=== PATIENT | female | born 1950 | race Asian ===

== ENCOUNTER 2017-03-23 08:35 | Inpatient (IN) | payer OTHER, MEDICAID ==
[~2017-03-23] VITALS: Ht 157.5 cm; Wt 73.9 kg
[2017-03-23 10:06] LABS: Urine Bilirubin Negative (Negative); Urine Blood Negative /uL (Negative); Urine Glucose Normal (Normal); Urine Ketone Negative (Negative); Urine Nitrite Negative (Negative); Urine RBC <1 /hpf (0 - 4); Urine Squamous Epithelial Cell FEW /hpf (<5); Urine Urobilinogen Normal (Negative)
[2017-03-23 10:07] LABS: Urine Color Straw (Yellow)
[2017-03-23 10:08] LABS: Basophils # (auto) 0 uL; Basophils % (auto) 0.3 % (0.0-2.0); CONDITION Y; Eosinophils # (auto) 0.1 uL; Hematocrit 45.7 % (36.0-46.0); Hemoglobin 15.5 g/dL (12.2-16.2); Lymphocytes # (auto) 3.3 uL; Lymphocytes % (auto) 28.9 % (10.0-50.0); Mean Corpuscular Hemoglobin 29.4 pg (28.0-32.0); Mean Corpuscular Hgb Conc. 33.9 g/dL (32.0-36.0); Mean Corpuscular Volume 86.8 fL (80.0-100.0); Mean Platelet Volume 8.6 fL (7.4-10.4); Monocytes # (auto) 0.7 uL; Monocytes % (auto) 6.3 % (0.0-12.0); Neutrophils # (auto) 7.2 uL; Neutrophils % (auto) 63.5 % (37.0-80.0); Platelet Count (auto) 306 10^3/uL (140-450); Red Cell Distribution Width 13.5 % (11.6-16.0); White Blood Cell 11.4 10^3/uL (4.4-10.8)
[2017-03-23 10:28] LABS: Chloride 102 mmol/L (98-107); Potassium 3.7 mmol/L (3.5-5.1); Sodium 138 mmol/L (136-145)
[2017-03-23 10:32] LABS: Albumin 4.1 g/dL (3.4-5.0); Amylase 69 U/L (25-115); Anion Gap 8 (5-15); BUN/Creatinine Ratio 13.5; Blood Urea Nitrogen 12 mg/dL (7-18); Calcium 9.4 mg/dL (8.5-10.1); Carbon Dioxide 28 mmol/L (21-32); GFR African American 82 mL/min; GFR Non-African American 67 mL/min; Glucose 92 mg/dL (74-106); Magnesium 2.4 mg/dL (1.6-2.6)
[2017-03-23 10:39] LABS: Alkaline Phosphatase 155 U/L (45-117); Aspartate Aminotransferase 31 U/L (15-37); Bilirubin, Total 0.5 mg/dL (0.2-1.0); Total Protein 8.7 g/dL (6.4-8.2)
[2017-03-23] MEDS ORDERED: SODIUM CHLORIDE 0.9% 1,000 ML IVB ONE (18:51)
[2017-03-23 20:05] LABS: INR 0.95 (0.9-1.15); Partial Thromboplastin Time 28.6 sec (22.64-33.71); Prothrombin Time 10.3 sec (9.37-12.3)
[2017-03-23] MEDS ORDERED: ONDANSETRON HCL 4 MG/2 ML VIAL IV ONE (21:45)
[2017-03-23] MEDS ORDERED: cefTRIAXone 1GM/50ML D5W 50 ML IV ONE (21:45)
[2017-03-23] MEDS ORDERED: MORPHINE SULF INJ 2 MG/ML SYRINGE 1ML IV ONE (21:45)
[2017-03-23] MEDS ORDERED: cloNIDine HCL 0.1 MG TAB PO PRN (22:00)
[2017-03-23] MEDS ORDERED: DEXTROSE (50%) 50ML SYRG IV PRN ×2 (22:00)
[2017-03-23 23:00] VITALS: BP 90/67
[2017-03-23 23:30] VITALS: BP 90/67
[2017-03-23] MEDS: SODIUM CHLORIDE 0.9% 1,000 ML IV SCH (23:35)
[2017-03-23] MEDS: FAMOTIDINE (10MG/ML) 2ML VL IV SCH (23:35)
[2017-03-23] MEDS: ATORVASTATIN 20 MG TAB PO SCH (23:35)
[2017-03-23] MEDS: ACCU-CHEK COMFORT CURVE STRIP VI SCH (23:41)
[2017-03-23] MEDS: InsuLIN REG 1unit/0.01ml Soln (100units/ml) SC SCH (23:41)
[2017-03-24 04:47] VITALS: BP 138/76
[2017-03-24] MEDS: InsuLIN REG 1unit/0.01ml Soln (100units/ml) SC SCH ×3 (06:00→18:00)
[2017-03-24] MEDS: SODIUM CHLORIDE 0.9% 1,000 ML IV SCH ×3 (06:00→20:17)
[2017-03-24] MEDS: ACCU-CHEK COMFORT CURVE STRIP VI SCH ×3 (06:31→18:00)
[2017-03-24 07:52] LABS: Basophils # (auto) 0 uL; Basophils % (auto) 0.4 % (0.0-2.0); CONDITION Y; Eosinophils # (auto) 0.1 uL; Eosinophils % (auto) 1.2 % (0.0-7.0); Hemoglobin 13.6 g/dL (12.2-16.2); Lymphocytes # (auto) 2.7 uL; Lymphocytes % (auto) 33.7 % (10.0-50.0); Mean Corpuscular Hemoglobin 29.2 pg (28.0-32.0); Mean Corpuscular Hgb Conc. 33.3 g/dL (32.0-36.0); Mean Corpuscular Volume 87.8 fL (80.0-100.0); Mean Platelet Volume 8.6 fL (7.4-10.4); Monocytes # (auto) 0.7 uL; Monocytes % (auto) 8.4 % (0.0-12.0); Neutrophils # (auto) 4.6 uL; Neutrophils % (auto) 56.3 % (37.0-80.0); Platelet Count (auto) 268 10^3/uL (140-450); Red Cell Distribution Width 13.4 % (11.6-16.0); White Blood Cell 8.1 10^3/uL (4.4-10.8)
[2017-03-24 07:56] LABS: BUN/Creatinine Ratio 7.7; Bilirubin, Total 0.7 mg/dL (0.2-1.0); Calcium 8.3 mg/dL (8.5-10.1); Potassium 3.8 mmol/L (3.5-5.1)
[2017-03-24 08:00] VITALS: BP 143/79
[2017-03-24] MEDS ORDERED: ceFAZolin 1GM/50ML D5W 50 ML IV ONE (08:29)
[2017-03-24] MEDS ORDERED: MEPERIDINE HCL (50 MG/ML) 1 ML VIAL ONE (08:46)
[2017-03-24] MEDS ORDERED: fentaNYL CITRATE 100 MCG/2 ML VL ONE (08:46)
[2017-03-24] MEDS ORDERED: MIDAZOLAM HCL 1MG/1ML-2 ML VIAL ONE (08:46)
[2017-03-24] MEDS ORDERED: DEXAMETHASONE SOD PHOS 10MG/1ML VIAL INJ ONE (08:47)
[2017-03-24 09:00] VITALS: BP 141/94
[2017-03-24] MEDS ORDERED: hydrALAZINE HCL 20 MG/ML VL IV PRN (09:00)
[2017-03-24] MEDS ORDERED: KETOROLAC TROMETH 30 MG/ML 1ML VIAL IV ONE (09:00)
[2017-03-24] MEDS ORDERED: ONDANSETRON HCL 4 MG/2 ML VIAL IV ONE (09:00)
[2017-03-24] MEDS ORDERED: MORPHINE SULF INJ 2 MG/ML SYRINGE 1ML IV PRN (09:00)
[2017-03-24] MEDS ORDERED: ePHEDrine SULFATE 50 MG/ML AMP IV PRN (09:00)
[2017-03-24] MEDS ORDERED: LABETALOL HCL 5 MG/ML 4ML SYRINGE IV PRN (09:00)
[2017-03-24] MEDS ORDERED: HYDROmorphone HCL 2 MG/ML VL IV PRN (09:00)
[2017-03-24] MEDS ORDERED: MIDAZOLAM HCL 1MG/1ML-2 ML VIAL IV PRN (09:00)
[2017-03-24] MEDS: cefTRIAXone 1GM/50ML D5W 50 ML IV SCH (09:00)
[2017-03-24] MEDS ORDERED: PROPOFOL 10 MG/ML 20 ML IV ONE (09:20)
[2017-03-24] MEDS ORDERED: ROCURONIUM 10MG/ML 10ML VIAL IV ONE (09:31)
[2017-03-24] MEDS ORDERED: NEOSTIGMINE 1 MG/ML INJ (10mg/10ML VIAL) ONE (09:43)
[2017-03-24] MEDS ORDERED: GLYCOPYRROLATE 0.2 MG/ML 1ML VIAL ONE (09:45)
[2017-03-24] MEDS: FAMOTIDINE (10MG/ML) 2ML VL IV SCH ×2 (10:00→21:45)
[2017-03-24 13:00] VITALS: BP 94/56
[2017-03-24 17:19] VITALS: BP 120/73
[2017-03-24] MEDS: MORPHINE SULF INJ 2 MG/ML SYRINGE 1ML IV PRN (20:17)
[2017-03-24] MEDS: ATORVASTATIN 20 MG TAB PO SCH (21:45)
[2017-03-24 22:00] VITALS: BP 117/69
[2017-03-25] MEDS: ACCU-CHEK COMFORT CURVE STRIP VI SCH ×5 (00:15→23:55)
[2017-03-25] MEDS ORDERED: METF-370 PO (01:37)
[2017-03-25] MEDS ORDERED: ASPI81TA27 PO (01:37)
[2017-03-25] MEDS ORDERED: HYDR12.56 PO (01:37)
[2017-03-25] MEDS ORDERED: LOSA50TA6 PO (01:37)
[2017-03-25 05:00] VITALS: BP 135/79
[2017-03-25] MEDS: InsuLIN REG 1unit/0.01ml Soln (100units/ml) SC SCH ×5 (05:54→23:55)
[2017-03-25] MEDS: SODIUM CHLORIDE 0.9% 1,000 ML IV SCH ×3 (05:54→22:13)
[2017-03-25 08:00] VITALS: BP 138/82
[2017-03-25] MEDS: cefTRIAXone 1GM/50ML D5W 50 ML IV SCH (09:27)
[2017-03-25] MEDS: FAMOTIDINE (10MG/ML) 2ML VL IV SCH ×2 (09:30→22:13)
[2017-03-25 12:00] VITALS: BP 126/71
[2017-03-25] MEDS: ONDANSETRON HCL 4 MG/2 ML VIAL IV PRN ×2 (13:19→19:57)
[2017-03-25 16:00] VITALS: BP 152/81
[2017-03-25] MEDS: MORPHINE SULF INJ 2 MG/ML SYRINGE 1ML IV PRN (19:58)
[2017-03-25 21:52] VITALS: BP 151/90
[2017-03-25] MEDS: ATORVASTATIN 20 MG TAB PO SCH (22:12)
[2017-03-26 04:48] VITALS: BP 160/88
[2017-03-26] MEDS: InsuLIN REG 1unit/0.01ml Soln (100units/ml) SC SCH ×2 (07:00→12:00)
[2017-03-26] MEDS: SODIUM CHLORIDE 0.9% 1,000 ML IV SCH ×2 (07:04→14:00)
[2017-03-26] MEDS: ACCU-CHEK COMFORT CURVE STRIP VI SCH ×2 (07:06→13:42)
[2017-03-26] MEDS: cefTRIAXone 1GM/50ML D5W 50 ML IV SCH (08:49)
[2017-03-26] MEDS: FAMOTIDINE (10MG/ML) 2ML VL IV SCH (08:49)
[2017-03-26 09:11] VITALS: BP 139/75
[2017-03-26 13:00] VITALS: BP 143/84
[2017-03-26 17:00] VITALS: BP 150/99
== END 2017-03-26 16:35 | disposition home or self-care (01) | DRG 339 ==
LOC: ER 08:43 → OVERFLOW 08:44 → CENTRAL 22:58
PROVIDERS: ADMIT Family Medicine; ATTEND Internal Medicine
PROC: 0DTJ4ZZ Resection of Appendix, Percutaneous Endoscopic Approach (ICD-10-PCS; principal; 2017-03-24 09:03)
DX: K35.3 Acute appendicitis with localized peritonitis (principal); N13.30 Unspecified hydronephrosis; I10 Essential (primary) hypertension; E78.5 Hyperlipidemia, unspecified; Z82.49 Family history of ischemic heart disease and other diseases of the circulatory system
CPT/HCPCS: 36415; 71010; 74176; 80053; 81001; 82150; 82962; 83036; 83690; 83735; 84484; 85025; 85610; 85730; 86850; 86900; 86901; 93005; 94761; 96361; 96374; 96375; J0690; J0696; J1100; J1815; J2250; J2405; J2704; J3490